=== PATIENT | female | born 1990 | race American Indian/Alaskan Native ===

== ENCOUNTER 2020-04-16 07:15 | Emergency (ER) | payer OTHER ==
[2020-04-16 07:32] VITALS: BP 102/67
[2020-04-16 08:01] LABS: Basophils # (Auto) 0.1 K/mm3 (0.0-0.1); Basophils % (Auto) 1.8 % (0.0-1.8); Eosinophils # (Auto) 0.3 K/mm3 (0.0-0.4); Eosinophils % (Auto) 5.1 % (0.0-4.3); Hematocrit 40.5 % (30.3-42.9); Hemoglobin 13.6 gm/dl (10.1-14.3); Lymphocytes # (Auto) 2.3 K/mm3 (1.2-5.4); Lymphocytes % (Auto) 36.7 % (13.4-35.0); Mean Corpuscular HGB Conc 34 % (30-34); Mean Corpuscular Volume 98 fl (79-97); Monocytes # (Auto) 0.6 K/mm3 (0.0-0.8); Platelet Count 262 K/mm3 (140-440); Red Blood Count 4.14 M/mm3 (3.65-5.03); Red Cell Distribution Width 13.9 % (13.2-15.2)
[2020-04-16] MEDS ORDERED: FAMOTIDINE 20 MG TAB PO ONE (08:33)
[2020-04-16] MEDS ORDERED: ONDANSETRON 4 MG ODT TAB PO ONE (08:33)
[2020-04-16] MEDS ORDERED: DICYCLOMINE 10 MG CAP PO ONE (08:33)
--- NOTE | 2020-04-16 08:33 | Emergency Department Report ---
ED Abdominal Pain HPI - General Chief Complaint: Abdominal Pain Stated Complaint: UPPER ABD PAIN Time Seen by Provider: 04/16/20 08:17 Source: patient Mode of arrival: Ambulatory Limitations: No Limitations - History of Present Illness Initial Comments: The patient was evaluated in the emergency department for symptoms described in the history of present illness. He/she was evaluated in the context of the global COVID-19 pandemic, which necessitated consideration that the patient might be at risk for infection with the virus that causes COVID-19. Institutional protocols and algorithms that pertain to the evaluation of patients at risk for COVID-19 are in a state of rapid change based on information released by regulatory bodies including the CDC and federal and state organizations. These policies and algorithms were followed during the patient's care in the emergency department. Please note that these policies, procedures and recommendations changed on a rapid basis. 29-year-old -[place] female presents to the emergency room stating she is having upper abdominal pain with nausea x2 days. Patient reports that the pain is kind of dull and just aches. Does not radiate. Has not vomited. Denies any fever chills. Reports her last menstrual period was 03/12/2020. Patient is 3 para 3. - Related Data Previous Rx's Medication Instructions Recorded Last Taken Type Dicyclomine [Bentyl] 10 mg PO QID #40 capsule 04/16/20 Unknown Rx Famotidine [Pepcid] 20 mg PO BID #20 tablet 04/16/20 Unknown Rx Ondansetron [Zofran Odt] 4 mg PO Q8HR PRN #12 tab.rapdis 04/16/20 Unknown Rx Allergies Allergy/AdvReac Type Severity Reaction Status Date / Time No Known Allergies Allergy Unverified 04/16/20 07:25 ED Review of Systems ROS: Stated complaint: UPPER ABD PAIN Other details as noted in HPI Comment: All other systems reviewed and negative ED Past Medical Hx - Past Medical History Previous Medical History?: Yes Additional medical history: Umbilical hernia - Surgical History Past Surgical History?: Yes Additional Surgical History: x 1, Umbilical hernia - Social History Smoking Status: Current Every Day Smoker Substance Use Type: Alcohol, Marijuana - Medications Home Medications: Home Medications Medication Instructions Recorded Confirmed Last Taken Type Dicyclomine [Bentyl] 10 mg PO QID #40 capsule 04/16/20 Unknown Rx Famotidine [Pepcid] 20 mg PO BID #20 tablet 04/16/20 Unknown Rx Ondansetron [Zofran Odt] 4 mg PO Q8HR PRN #12 tab.rapdis 04/16/20 Unknown Rx ED Physical Exam - General Limitations: No Limitations General appearance: alert, in no apparent distress - Head Head exam: Present: atraumatic, normocephalic - Eye Eye exam: Present: normal appearance - ENT ENT exam: Present: mucous membranes moist - Neck Neck exam: Present: normal inspection - Respiratory Respiratory exam: Present: normal lung sounds bilaterally. Absent: respiratory distress - Cardiovascular Cardiovascular Exam: Present: regular rate, normal rhythm. Absent: systolic murmur, diastolic murmur, rubs, gallop - GI/Abdominal GI/Abdominal exam: Present: soft, normal bowel sounds. Absent: distended, guarding - Back Exam Back exam: Present: normal inspection, full ROM - Neurological Exam Neurological exam: Present: alert, oriented X3 - Psychiatric Psychiatric exam: Present: normal affect, normal mood - Skin Skin exam: Present: warm, dry, intact, normal color. Absent: rash ED Course Vital Signs 04/16/20 07:25 Temperature 98.1 F Pulse Rate 78 Respiratory 20 Rate Blood Pressure 102/67 O2 Sat by Pulse 98 Oximetry ED Medical Decision Making - Lab Data Result diagrams: 04/16/20 07:35 04/16/20 07:35 Laboratory Tests 04/16/20 04/16/20 04/16/20 07:35 07:35 07:35 WBC 6.2 RBC 4.14 Hgb 13.6 Hct 40.5 MCV 98 H MCH 33 H MCHC 34 RDW 13.9 Plt Count 262 Lymph % (Auto) 36.7 H [place] % (Auto) 10.0 H Eos % (Auto) 5.1 H Baso % (Auto) 1.8 Lymph # (Auto) 2.3 [place] # (Auto) 0.6 Eos # (Auto) 0.3 Baso # (Auto) 0.1 Seg Neutrophils % 46.4 Seg Neutrophils # 2.9 Sodium 142 Potassium 4.0 Chloride 106.2 Carbon Dioxide 21 L Anion Gap 19 BUN 11 Creatinine 0.7 Estimated GFR > 60 BUN/Creatinine Ratio 16 Glucose 98 Calcium 9.2 Total Bilirubin 0.80 AST 11 ALT 5 L Alkaline Phosphatase 77 Total Protein 7.0 Albumin 4.4 Albumin/Globulin Ratio 1.7 Lipase 48 Urine Color Urine Turbidity Urine pH Ur Specific [place] Urine Protein Urine Glucose (UA) Urine Ketones Urine Blood Urine Nitrite Urine Bilirubin Urine Urobilinogen Ur Leukocyte Esterase Urine WBC (Auto) Urine RBC (Auto) U Epithel Cells (Auto) Urine Mucus Urine HCG, Qual 04/16/20 08:02 WBC RBC Hgb Hct MCV MCH MCHC RDW Plt Count Lymph % (Auto) [place] % (Auto) Eos % (Auto) Baso % (Auto) Lymph # (Auto) [place] # (Auto) Eos # (Auto) Baso # (Auto) Seg Neutrophils % Seg Neutrophils # Sodium Potassium Chloride Carbon Dioxide Anion Gap BUN Creatinine Estimated GFR BUN/Creatinine Ratio Glucose Calcium Total Bilirubin AST ALT Alkaline Phosphatase Total Protein Albumin Albumin/Globulin Ratio Lipase Urine Color Yellow Urine Turbidity Clear Urine pH 6.0 Ur Specific [place] 1.026 Urine Protein <15 mg/dl Urine Glucose (UA) Neg Urine Ketones Neg Urine Blood Neg Urine Nitrite Neg Urine Bilirubin Neg Urine Urobilinogen 2.0 Ur Leukocyte Esterase Sm Urine WBC (Auto) 4.0 Urine RBC (Auto) 3.0 U Epithel Cells (Auto) 5.0 Urine Mucus 3+ Urine HCG, Qual Negative - Medical Decision Making 29-year-old -[place] female presents to the emergency room stating she is having upper abdominal pain with nausea x2 days. Patient reports that the pain is kind of dull and just aches. Does not radiate. Has not vomited. Denies any fever chills. Reports her last menstrual period was 03/12/2020. Pat ient is 3 para 3. CBC CMP urinalysis hCG has been ordered. Zofran ODT, Bentyl and Pepcid has been ordered. All labs are within normal limits. Patient be discharged home with Bentyl, Pepcid and Zofran and to follow-up with a superintendent menagerie a primary care provider. Patient is encouraged to increase her fluid intake. Critical care attestation.: If time is entered above; I have spent that time in minutes in the direct care of this critically ill patient, excluding procedure time. ED Disposition Clinical Impression: Acute epigastric pain Disposition: DC-01 TO HOME OR SELFCARE Is pt being admited?: No Does the pt Need Aspirin: No Condition: Stable Instructions: Abdominal Pain (ED) Additional Instructions: All your labs are negative for any acute findings or infections. Recommend you to take the medications as prescribed and follow-up with your superintendent menagerie or primary care provider. Prescriptions: Dicyclomine [Bentyl] 10 mg PO QID #40 capsule Famotidine [Pepcid] 20 mg PO BID #20 tablet Ondansetron [Zofran Odt] 4 mg PO Q8HR PRN #12 tab.rapdis PRN Reason: Nausea And Vomiting Referrals: [facility] [Provider Group] - 3-5 Days
[2020-04-16 08:53] LABS: Bilirubin,Urine NEG (Negative); Blood,Urine NEG (Negative); Color,Urine Yellow (Yellow); Mucus,Urine 3+ /HPF; Protein,Urine <15 mg/dL mg/dL (Negative)
[2020-04-16 08:55] LABS: HCG Qualitative,Urine Negative (Negative)
[2020-04-16 08:56] LABS: Alanine Aminotransferase 5 units/L (7-56); Albumin 4.4 g/dL (3.9-5); Blood Urea Nitrogen 11 mg/dL (7-17); Calcium 9.2 mg/dL (8.4-10.2); Hemolysis Index 9
[2020-04-16 09:02] LABS: BUN/Creatinine Ratio 16
== END 2020-04-16 09:39 | disposition home or self-care (01) ==
LOC: ED 07:15
DX: R10.13 Epigastric pain (principal); F17.200 Nicotine dependence, unspecified, uncomplicated; F12.90 Cannabis use, unspecified, uncomplicated; Z79.899 Other long term (current) drug therapy; Z98.890 Other specified postprocedural states
CPT/HCPCS: 36415; 80053; 81001; 81025; 83690; 85025; Q0162